=== PATIENT | female | born 1970 | race African-American/Black ===

== ENCOUNTER 2022-04-05 13:45 | Emergency (ER) | payer BC ==
[~2022-04-05] VITALS: Ht 157.5 cm; Wt 63.5 kg
[2022-04-05 14:12] VITALS: BP 119/80
[2022-04-05 15:07] LABS: ALBUMIN 3.6 g/dL (3.4-5.0); ANION GAP 12.4 (8-16); CARBON DIOXIDE 24.5 mmol/L (21-32); CREATININE 0.8 mg/dL (0.6-1.3); POTASSIUM 3.9 mmol/L (3.5-5.1); TOTAL BILIRUBIN 0.3 mg/dL (0.0-1.0)
[2022-04-05 15:14] LABS: BASOPHILS # (AUTO) 0.1 K/uL (0.00-0.22); BASOPHILS % (AUTO) 0.8 % (0.0-2.0); EOSINOPHILS # (AUTO) 0.3 K/uL (0-0.4); EOSINOPHILS % (AUTO) 3.3 % (0.0-4.0); HEMATOCRIT 22.5 % (36-48); LYMPHOCYTES # (AUTO) 2.8 K/uL (2.5-16.5); LYMPHOCYTES % (AUTO) 36.9 % (20.5-51.1); MEAN CORPUSCULAR HEMOGLOBIN 15 pg (27-31); MEAN CORPUSCULAR HGB CONC 29 g/dL (33-37); MEAN CORPUSCULAR VOLUME 53.8 fL (80-94); MONOCYTES # (AUTO) 0.4 K/uL (0.8-1.0); MONOCYTES % (AUTO) 5.5 % (1.7-9.3); NEUTROPHILS % (AUTO) 53.5 % (42.2-75.2); PLATELET COUNT (AUTO) 352 K/uL (140-450); RED BLOOD CELL COUNT(AUTO) 4.19 MIL/uL (4.20-5.40); RED CELL DISTRIBUTION WIDTH 21.4 % (11.6-13.7); WHITE BLOOD COUNT (AUTO) 7.5 K/uL (4.8-10.8)
[2022-04-05 15:19] LABS: HEMOGLOBIN 6.4 g/dL (12.0-16.0)
[2022-04-05 15:48] LABS: PROTHROMBIN TIME 10.3 secs (10.8-13.4)
--- NOTE | 2022-04-05 17:10 | NUR ---
PT AMBULATED TO BED 05.
--- NOTE | 2022-04-05 17:27 | NUR ---
DR. RODRIGUEZ EVALUATING PATIENT AT BEDSIDE.
[2022-04-05] MEDS ORDERED: FERR-212 PO (17:48)
[2022-04-05] MEDS ORDERED: FURO-572 PO (17:48)
[2022-04-05] MEDS ORDERED: BACTO TP (17:48)
[2022-04-05 18:33] VITALS: BP 105/77
--- NOTE | 2022-04-05 18:33 | NUR ---
Patient does not wish to proceed with medical care recommended by DR. RODRIGUEZ. Patient given information related to possible complications, up to and including , which could occur as a result of leaving hospital at this time. Patient verbalizes understanding of risks involved leaving against medical advice. Patient has signed AMA form. DR. RODRIGUEZ OFFERED DISCHARGE PAPERWORK AND SENT PRESCRIPTION TO PHARMACY.
== END 2022-04-05 18:33 | disposition left against medical advice (07) ==
LOC: MED 13:45
DX: I89.0 Lymphedema, not elsewhere classified (principal); T80.89XA Other complications following infusion, transfusion and therapeutic injection, initial encounter; D57.1 Sickle-cell disease without crisis
CPT/HCPCS: 36415; 80053; 85025; 85610; 85730; 86886; 86900; 86901; 86920; 99283